=== PATIENT | male | born 1980 | race Caucasian/White ===

== ENCOUNTER → 2023-11-03 03:28 | Outpatient (REF) | payer OTHER, SELFPAY ==
[2023-11-13 09:04] LABS: HPV, High Risk Not Detected; HPV, High Risk Source Anal
== END ==
LOC: CLAB 03:28
PROVIDERS: ATTENDING PHYSICIAN Physician Assistant
DX: Z86.19 Personal history of other infectious and parasitic diseases (principal)
CPT/HCPCS: 87624; 88112

== ENCOUNTER → 2023-12-03 18:14 | Outpatient (REF) | payer OTHER, SELFPAY | LOC: MRI 3T 18:14 | PROVIDERS: ATTENDING PHYSICIAN Physician Assistant; FAMILY PHYSICIAN Nurse Practitioner | DX: Z86.19 Personal history of other infectious and parasitic diseases (principal) | CPT/HCPCS: 72197; A9575 ==